=== PATIENT | male | born 1960 | race Caucasian/White ===

== ENCOUNTER 2022-06-23 18:07 | Inpatient (IN) | payer OTHER, SELFPAY ==
[2022-06-23] VITALS (11 sets, daily range): BP systolic 126–175; BP diastolic 60–92; PULSE 70–95; RESP 15–24; TEMP 36.6; O2SAT 93–98; BMI 28.7
--- NOTE | 2022-06-23 18:30 | DI.CT.S_ITS ---
PROCEDURE: CT ANGIO HEAD AND NECK INDICATIONS: stroke symptoms TECHNIQUE: Pre-contrast 4.5 mm thick sections acquired from the foramen magnum to the vertex. After the administration of intravenous contrast, 1 mm thick sections acquired from the aortic arch through the [place] of [place]. Post-contrast 4.5 mm thick sections then re-acquired from the foramen magnum to the vertex. 3-dimensional mbqbgds-zbwhfzrdu-htpeewbjmy (MIP) and/or volume rendering reformats were acquired of the central intracranial vasculature and neck separately. For radiation dose reduction, the following was used: automated exposure control, adjustment of mA and/or kV according to patient size. COMPARISON: None. FINDINGS: Image quality: Excellent. BRAIN: CSF spaces: Ventricles are normal in size and shape. Basal cisterns are patent. No extra-axial fluid collections. Brain: No midline shift. No intracranial bleeds or masses. Ha-white matter interface appears intact. Skull and face: Calvarium and facial bones appear intact, without suspicious lesions. Orbits appear normal. Sinuses: Sinuses and mastoids are clear. HEAD CT ANGIOGRAPHY: Anterior circulation: Left internal carotid artery is occluded. Mild calcific stenosis of the cavernous segment of the right internal carotid artery. The flow within the paired anterior cerebral arteries is normal and symmetric. The flow within the middle cerebral arteries is normal and symmetric. The anterior communicating artery is seen. No aneurysms are seen. Posterior circulation: Visualized portions of the vertebral arteries demonstrate normal caliber, and join to form a normal appearing basilar artery. Flow within the posterior cerebral arteries is normal and symmetric. No aneurysms are seen. NECK CT ANGIOGRAPHY: Carotid system: The great vessels demonstrate a conventional anatomy as they arise from the aortic arch. The origins of the common carotid arteries appear patent. The common carotid arteries demonstrate normal caliber and courses. Left internal carotid artery is occluded at its origin. Right internal carotid artery demonstrates a roughly 30% origin stenosis, and is otherwise patent. Posterior circulation: The origins of the vertebral arteries both appear widely patent. The more superior extracranial portions of both vertebral arteries also demonstrate normal courses and calibers. They join to form a normal appearing basilar artery. Soft tissues: Visualized neck soft tissues demonstrate no suspicious abnormalities. Bones: No suspicious bony lesions. Visualized cervical spine appears normally aligned. IMPRESSION: 1. Occluded left internal carotid artery. 2. Mildly stenotic right internal carotid artery. 3. Patent bilateral vertebral arteries. Any quantitative measurements of stenosis were performed using NASCET criteria. Dictated by: Enrique Gallo M.D. on 06/23/2022 at 19:24 Approved by: Enrique Gallo M.D. on 06/23/2022 at 19:27
[2022-06-23 18:56] LABS: Add Manual Diff / Slide Review NO; Basophils Absolute Auto 100 /uL (0-100); Basophils Percent Auto 1.2 % (0-2); Eosinophils Absolute Auto 0 /uL (0-450); Eosinophils Percent Auto 0.7 % (2-4); Hematocrit 48.4 % (41-53); Hemoglobin 17.4 g/dL (13.5-17.5); Lymphocytes Absolute Auto 1600 /uL (1100-4500); Lymphocytes Percent Auto 21.8 % (25-40); Mean Corpuscular HGB Conc 35.9 % (30-36); Mean Corpuscular Hemoglobin 32.6 PG (26-34); Mean Corpuscular Volume 90.8 fL (80-100); Monocytes Absolute Auto 600 /uL (0-900); Monocytes Percent Auto 8.5 % (3-14); Neutrophils Absolute Auto 4900 /uL (1500-7000); Neutrophils Percent Auto 67.8 % (50-75); Platelet Count 184 X10^3/uL (150-400); Red Blood Cell Count 5.33 X10^6/uL (4.5-5.9); White Blood Cell Count 7.2 X10^3/uL (4.5-11.0)
[2022-06-23 18:58] LABS: Prothrombin Time 11.9 SECONDS (10.1-12.7)
[2022-06-23 19:00] LABS: PTT Partial Thromboplastin Tim 32 SECONDS (26-36)
[2022-06-23 19:03] LABS: Alanine Aminotransferase 63 IU/L (<50); Albumin 4.7 g/dL (3.5-5.0); Albumin Globulin Ratio 1.5 (1.0-2.8); Alkaline Phosphatase 82 U/L (38-126); Aspartate Aminotransferase 45 IU/L (17-59); BUN Creatinine Ratio 11.3 (6-22); Bilirubin Total 1.2 mg/dL (0.2-1.3); Blood Urea Nitrogen 12 mg/dL (9-20); Calcium 9.4 mg/dL (8.4-10.2); Carbon Dioxide 20 mmol/L (22-32); Chloride 104 mmol/L (98-107); Creatine Kinase 88 U/L (55-170); Estimated Glomerular Filt Rate > 60 mL/min (>60); Ethanol (ETOH) < 10 mg/dL; Globulin 3.2 g/dL (1.7-4.1); Glucose 110 mg/dL (70-100); HEMOLYSIS < 15 (0-50); Potassium 4.2 mmol/L (3.4-5.1); Sodium 137 mmol/L (137-145); Total Protein 7.9 g/dL (6.3-8.2)
[2022-06-23 19:14] LABS: Troponin I < 0.012 ng/mL (0.01-0.034)
--- NOTE | 2022-06-23 19:16 | ED_ITS ---
HPI - Neuro Symptoms/Deficit General Chief Complaint: Neuro Symptoms/Deficit Stated Complaint: possible stroke Time Seen by Provider: 06/23/22 19:00 Source: patient, family and other (Primary care notes) Mode of arrival: Family Vehicle Limitations: no limitations History of Present Illness HPI Narrative: Patient here with daughter, drove here from primary care office for primary care reports concern of stroke. Patient states he was in [place] last week but return last Tuesday. This past Tuesday last well known with being well. Tuesday morning he was shaving he is right-handed and had very much difficulty with controlling his right hand to shave his face. Had no facial numbness or weakness. 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 This is not new. But denies any leg weakness. No slurred speech or facial droop. Patient feels his arm is better. But not 100%. No prior history of stroke. No history of heart attack strokes diabetes or high blood pressure. Daughter states he does not live with her and today is the 1st time she knows about these symptoms. No recent illness. No chest pain no headache. No cough cold congestion fever chills. Fast exam is negative History of same: No Severity: moderate Quality: weak Relieving factors: none Exacerbating factors: none On Anticoagulants: No Associated symptoms: denies other symptoms Related Data Allergies Allergy/AdvReac Type Severity Reaction Status Date / Time No Known Drug Allergies Allergy Verified 06/23/22 18:16 Review of Systems Review of Systems Narrative: GENERAL: negative chills, fatigue, malaise, fever, sweats. HEENT: negative sinus pain, ear pain, sore throat RESPIRATORY: negative dyspnea, cough CARDIOVASCULAR: negative chest pain, palpitations GASTROINTESTINAL: negative nausea, vomiting, abdominal pain : negative dysuria, frequency, hematuria MUSCULOSKELETAL: negative muscle or bony pain SKIN: negative rash, skin lesions NEUROLOGIC: Positive weakness, numbness, negative facial droop slurred speech ROS Unobtainable: All systems reviewed & are unremarkable except as noted in HPI and below Hematologic/Lymphatic On Anticoagulants: No Patient History Social History Smoking Status: Current some day smoker Smoking Status: Current some day smoker tobacco type: cigars Substance Use Type: does not use Exam Narrative Exam Narrative: GENERAL: in no distress, not toxic not dyspneic HEAD: Normocephalic. EYES: Pupils equal round No scleral icterus. ENT: Mucous membranes moist. NECK: Trachea midline. CARDIOVASCULAR: Regular rate and rhythm without murmurs RESPIRATORY: Clear to auscultation. Breath sounds equal bilaterally. No wheezes, rales, or rhonchi. GASTROINTESTINAL: Abdomen soft, non-tender EXTREMITIES: No gross deformities. BACK: No flank tenderness. NEURO: AOx4. Clear speech no facial droop. ?Light touch intact to bilateral face hands and legs. ?Strong equal insecticide maker bilaterally and ankle flexion hip flexion and knee flexion. ?Strong bilateral patellar reflexes. ?No pronator drift. ? SKIN: Warm and dry PSYCH: Not anxious, is cooperative Initial Vital Signs Initial Vital Signs: Vital Signs Temperature 97.8 F 06/23/22 18:14 Pulse Rate 95 H 06/23/22 18:14 Respiratory Rate 16 06/23/22 18:14 Blood Pressure 170/92 H 06/23/22 18:14 Pulse Oximetry 98 06/23/22 18:14 Oxygen Delivery Method 06/23/22 18:14 Scores NIH Stroke Scale Level of Conciousness: Alert, keenly responsive Ask month/age: Answers both questions correctly. Open/close eyes, close hand: Performs both tasks correctly Best gaze horizontal: Normal Visual coon: No visual loss Facial palsy: Normal symetrical movement Left arm drift: No drift for full 10 sec Right arm drift: No drift for full 10 sec Left leg drift: No drift for full 5 sec Right leg drift: No drift for full 5 sec Limb ataxia: Absent Sensory on face/arms/legs: Normal, no sensory loss Best language: No aphasia, normal Dysarthria: Normal Extinction or inattention: No abnormality Total NIH Stroke scale score: 0 Course Course Decision to Admit Date: 06/23/22 Decision to Admit time: 19:21 Orders Ordered: ED Orders 06/23/22 18:29 Urine Drug Screen, Rapid Stat EKG-12 Lead Stat 06/23/22 18:30 CT angio head and neck Stat 06/23/22 18:40 Complete Blood Count AUTO DIFF Stat Comprehensive Metabolic Panel Stat Ethanol (ETOH) Stat Partial Thromboplastin Time Stat Prothrombin Time INR Stat Troponin & CK Cardiac Panel Stat 06/23/22 19:17 COVID19 -Nasal RAPID/Pre-Proc Stat Acetaminophen (Acetaminophen 325 Mg Tablet) 650 mg PO Q6H PRN PRN Reason: Fever/Mild Pain (1-3) Aspirin (Aspirin Ec 81 Mg Tablet) 81 mg PO DAILY [facility] Atorvastatin Calcium (Atorvastatin 20 Mg Tablet) 80 mg PO BEDTIME [facility] Clopidogrel Bisulfate (Clopidogrel 75 Mg Tablet) 75 mg PO DAILY [facility] Enoxaparin Sodium (Enoxaparin 40 Mg/0.4 Ml Syringe) 40 mg SUBCUT DAILY [facility] Losartan Potassium (Losartan 25 Mg Tablet) 25 mg PO DAILY [facility] Naloxone HCl (Naloxone 0.4 Mg/Ml Vial) 0.2 mg IV Q2MIN PRN PRN Reason: Opiate Reversal Ondansetron HCl (Ondansetron 4 Mg/2 Ml Inj) 4 mg IV Q8HR PRN PRN Reason: Nausea And Vomiting Discontinued Medications Aspirin (Aspirin 81 Mg Chew Tab) 324 mg PO NOW ONE Stop: 06/23/22 19:58 Last Admin: 06/23/22 20:21 Dose: 324 mg Documented By: WILLIE Sodium Chloride (Normal Saline 0.9%) 1,000 mls @ 1,000 mls/hr IV BOLUS ONE Stop: 06/23/22 21:00 Last Admin: 06/23/22 20:22 Dose: 1,000 mls/hr Documented By: WILLIE Vital Signs Vital signs: Vital Signs - 8 hr 06/23/22 18:14 06/23/22 19:00 06/23/22 19:38 Temperature 97.8 F Pulse Rate 95 H 77 78 Respiratory Rate 16 18 18 Blood Pressure 170/92 H 163/92 H 147/79 H Pulse Oximetry 98 94 95 Oxygen Delivery Method Room Air Room Air Room Air 06/23/22 20:04 Temperature Pulse Rate 76 Respiratory Rate 20 Blood Pressure 156/86 H Pulse Oximetry 97 Oxygen Delivery Method Room Air MDM - Neuro Symptoms/Deficit Differential Diagnosis Differential diagnosis: Likely peripheral neuropathy, cerebrovascular accident, multiple sclerosis and transient cerebral ischemia Lab Data Result diagrams: 06/23/22 18:40 06/23/22 18:40 Labs: Lab Results 06/23/22 06/23/22 06/23/22 Range/Units 18:40 18:40 18:40 WBC 7.2 (4.5-11.0) X10^3/uL RBC 5.33 (4.5-5.9) X10^6/uL Hgb 17.4 (13.5-17.5) g/dL Hct 48.4 (41-53) % MCV 90.8 (80-100) fL MCH 32.6 (26-34) PG MCHC 35.9 (30-36) % RDW 13.0 (11.6-14.8) % Plt Count 184 (150-400) X10^3/uL Neut % (Auto) 67.8 (50-75) % Lymph % (Auto) 21.8 L (25-40) % [place] % (Auto) 8.5 (3-14) % Eos % (Auto) 0.7 L (2-4) % Baso % (Auto) 1.2 (0-2) % Neut # (Auto) 4900 (7783-2680) /uL Lymph # (Auto) 1600 (4998-7692) /uL [place] # (Auto) 600 (0-900) /uL Eos # (Auto) 0 (0-450) /uL Baso # (Auto) 100 (0-100) /uL PT 11.9 (10.1-12.7) SECONDS INR 1.0 (0.9-1.3) APTT 32 (26-36) SECONDS Sodium 137 (137-145) mmol/L Potassium 4.2 (3.4-5.1) mmol/L Chloride 104 (98-107) mmol/L Carbon Dioxide 20 L (22-32) mmol/L BUN 12 (9-20) mg/dL Creatinine 1.06 (0.66-1.25) mg/dL Estimated GFR > 60 (>60) mL/min BUN/Creatinine Ratio 11.3 (6-22) Glucose 110 H (70-100) mg/dL Calcium 9.4 (8.4-10.2) mg/dL Total Bilirubin 1.2 (0.2-1.3) mg/dL AST 45 (17-59) IU/L ALT 63 H (<50) IU/L Alkaline Phosphatase 82 (38-126) U/L Total Creatine Kinase 88 (55-170) U/L CK-MB (CK-2) TNP CK-MB (CK-2) Rel Index TNP Troponin I < 0.012 (0.01-0.034) ng/mL Total Protein 7.9 (6.3-8.2) g/dL Albumin 4.7 (3.5-5.0) g/dL Globulin 3.2 (1.7-4.1) g/dL Albumin/Globulin Ratio 1.5 (1.0-2.8) Ethyl Alcohol < 10 ( - 10) mg/dL SARS-CoV-2 (PCR) (Negative) 06/23/22 Range/Units 19:17 WBC (4.5-11.0) X10^3/uL RBC (4.5-5.9) X10^6/uL Hgb (13.5-17.5) g/dL Hct (41-53) % MCV (80-100) fL MCH (26-34) PG MCHC (30-36) % RDW (11.6-14.8) % Plt Count (150-400) X10^3/uL Neut % (Auto) (50-75) % Lymph % (Auto) (25-40) % [place] % (Auto) (3-14) % Eos % (Auto) (2-4) % Baso % (Auto) (0-2) % Neut # (Auto) (2714-7327) /uL Lymph # (Auto) (4905-2238) /uL [place] # (Auto) (0-900) /uL Eos # (Auto) (0-450) /uL Baso # (Auto) (0-100) /uL PT (10.1-12.7) SECONDS INR (0.9-1.3) APTT (26-36) SECONDS Sodium (137-145) mmol/L Potassium (3.4-5.1) mmol/L Chloride (98-107) mmol/L Carbon Dioxide (22-32) mmol/L BUN (9-20) mg/dL Creatinine (0.66-1.25) mg/dL Estimated GFR (>60) mL/min BUN/Creatinine Ratio (6-22) Glucose (70-100) mg/dL Calcium (8.4-10.2) mg/dL Total Bilirubin (0.2-1.3) mg/dL AST (17-59) IU/L ALT (<50) IU/L Alkaline Phosphatase (38-126) U/L Total Creatine Kinase (55-170) U/L CK-MB (CK-2) CK-MB (CK-2) Rel Index Troponin I (0.01-0.034) ng/mL Total Protein (6.3-8.2) g/dL Albumin (3.5-5.0) g/dL Globulin (1.7-4.1) g/dL Albumin/Globulin Ratio (1.0-2.8) Ethyl Alcohol ( - 10) mg/dL SARS-CoV-2 (PCR) Negative (Negative) Imaging Data CTA - brain/neck: Radiologist's Impression: [address] [address] [address] Scan Report Signed Patient: Mynor Beal MR#: [id number] : 1960 Acct:[id number] Age/Sex: 61 / M Date of Service: 06/23/22 Loc: ED Accession Number: [id number] ?? Procedure: CT angio head and neck Ordering Provider: Kam Cordova MD PROCEDURE:? CT ANGIO HEAD AND NECK ? INDICATIONS:? stroke symptoms ? TECHNIQUE:? Pre-contrast 4.5 mm thick sections acquired from the foramen magnum to the vertex.? After the administration of intravenous contrast, 1 mm thick sections acquired from the aortic arch through the [place] of [place].? Post-contrast 4.5 mm thick sections then re- acquired from the foramen magnum to the vertex.? 3-dimensional zfsbcoh-bufslfdqh-sqyezgpkoj (MIP) and/or volume rendering reformats were acquired of the central intracranial vasculature and neck separately. For radiation dose reduction, the following was used:? automated exposure control, adjustment of mA and/or kV according to patient size.? ? COMPARISON:? None. ? FINDINGS:? Image quality:? Excellent.? ? BRAIN:? CSF spaces:? Ventricles are normal in size and shape.? Basal cisterns are patent.? No extra-axial fluid collections.? ? Brain:? No midline shift.? No intracranial bleeds or masses.? Ha-white matter interface appears intact.? ? Skull and face:? Calvarium and facial bones appear intact, without suspicious lesions.? Orbits appear normal.? ? Sinuses:? Sinuses and mastoids are clear.? ? HEAD CT ANGIOGRAPHY:? Anterior circulation:? Left internal carotid artery is occluded.? Mild calcific stenosis of the cavernous segment of the right internal carotid artery.? The flow within the paired anterior cerebral arteries is normal and symmetric.? The flow within the middle cerebral arteries is normal and symmetric.? The anterior communicating artery is seen.? No aneurysms are seen.? ? Posterior circulation:? Visualized portions of the vertebral arteries demonstrate normal caliber, and join to form a normal appearing basilar artery.? Flow within the posterior cerebral arteries is normal and symmetric.? No aneurysms are seen.? ? NECK CT ANGIOGRAPHY:? Carotid system:? The great vessels demonstrate a conventional anatomy as they arise from the aortic arch.? The origins of the common carotid arteries appear patent.? The common carotid arteries demonstrate normal caliber and courses.? Left internal carotid artery is occluded at its origin.? Right internal carotid artery demonstrates a roughly 30% origin stenosis, and is otherwise patent. ? Posterior circulation:? The origins of the vertebral arteries both appear widely patent.? The more superior extracranial portions of both vertebral arteries also demonstrate normal courses and calibers.? They join to form a normal appearing basilar artery.? ? Soft tissues:? Visualized neck soft tissues demonstrate no suspicious abnormalities.? ? Bones:? No suspicious bony lesions.? Visualized cervical spine appears normally aligned.? IMPRESSION:? 1. Occluded left internal carotid artery. 2. Mildly stenotic right internal carotid artery. 3. Patent bilateral vertebral arteries. ? Any quantitative measurements of stenosis were performed using NASCET criteria.? ? ? Dictated by: Enrique Gallo M.D. on 06/23/2022 at 19:24 ? ? Approved by: Enrique Gallo M.D. on 06/23/2022 at 19:27 ? ECG Data Interpretation: Normal sinus rhythm rate [address] elevation or depression Treatment and disposition Social Determinants of Health that impact treatment or disposition: None Code Status and discussions:: Full code Shared decision making:: Reviewed with daughter and patient MDM Narrative Medical decision making narrative: Patient here with daughter, drove here from primary care office for primary care reports concern of stroke. Patient states he was in [place] last week but return last Tuesday. This past Tuesday last well known with being well. Tuesday morning he was shaving he is right-handed and had very much difficulty with controlling his right hand to shave his face. Had no facial numbness or weakness. 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 This is not new. But denies any leg weakness. No slurred speech or facial droop. Patient feels his arm is better. But not 100%. No prior history of stroke. No history of heart attack strokes diabetes or high blood pressure. Daughter states he does not live with her and today is the 1st time she knows about these symptoms. No recent illness. No chest pain no headache. No cough cold congestion fever chills. Fast exam is negative After history, CBC CMP troponin EKG CT angiogram head and neck were ordered. D ifferential diagnosis includes cervical radiculopathy/TIA/stroke but not limited to these differentials. 7:22 p.m.. Did review with patient based on exam and history it would be prudent for admission for balance workup for possible TIA/stroke. 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 He needs echocardiogram and MRI in the morning. Blood pressure is noted. This could be due to anxiety versus cerebral perfusion demand. 7:46 p.m.. I did review results of CT angiogram and concerning for occluded left internal carotid artery. I have paged tele stroke for review. 7:56 p.m.. s/w dr mckeon, telestroke, recommends patient be admitted here, not transfer. I did review angiogram with her with left internal carotid artery occlusion. At this time, no intervention as onset 2 days ago. Recommends full aspirin and get carotid Dopplers while course of admission here. allow permissive htn 8:[address] Pandya, hospitalist, will admit patient. Appropriate for admission, patient will need balance a workup for stroke. Including carotid Dopplers as well as echocardiogram as well as MRI. Patient has been started aspirin here. Patient would have high risk of decompensation /deconditioning if discharged home. Would benefit for stroke treatment here. Stroke Core Measures Exclusion Criteria TPA in CVA: Symptom Onset >3 or 4.5 Hours Discharge Plan Departure Patient Disposition: Admitted as Observation Clinical Impression: Cerebrovascular accident Admit Date/Time: 06/23/22 20:19 Admit Provider: Fito Pandya
[2022-06-23 19:46] LABS: COVID19 -Nasal RAPID Negative (Negative)
[2022-06-23] MEDS: ASPIRIN 81 MG CHEW TAB 324 MG PO (20:21)
[2022-06-23] MEDS: SODIUM CHLORIDE 0.9% 1,000 ML 1000 ML IV (20:22)
--- NOTE | 2022-06-23 21:04 | DI.MRI.S_ITS ---
PROCEDURE: MR HEAD/BRAIN WO CON INDICATIONS: cva? TECHNIQUE: Noncontrast axial T1 spin echo, axial T2 fast spin echo, sagittal and axial FLAIR, coronal T2 fast spin echo, axial gradient echo, axial diffusion and ADC through the brain. COMPARISON: None. FINDINGS: Image quality: Degraded by patient cooperation factors and motion artifact. CSF Spaces: Basal cisterns are patent. No extra-axial fluid collections. Ventricles are normal in size and shape. Brain: No intracranial masses or hemorrhage. Ha/white matter interface is normal. Brainstem appears normal. Diffusion-weighted images demonstrate multiple regions of elevated signal intensity within the left centrum semiovale, largest of which measures roughly 11 mm. Small focus of elevated diffusion signal within the left occipital subcortical white matter. These lesions demonstrate moderate FLAIR signal elevation.. No chronic ischemic insults. Normal intravascular flow voids are present. Skull and face: Calvarium has normal marrow signal. Orbits appear normal. Sinuses: Retention cysts within the bilateral sphenoid sinuses. Retention cyst within the right maxillary sinus. Mastoids clear. IMPRESSION: 1. Limited examination. 2. Multifocal subacute infarcts within the left centrum semiovale and left occipital subcortical white matter. 3. Sinus disease. Dictated by: Enrique Gallo M.D. on 06/24/2022 at 8:24 Approved by: Enrique Gallo M.D. on 06/24/2022 at 8:26
--- NOTE | 2022-06-23 21:07 | DI.ECHO.S_ITS ---
[facility]---------+ [facility] +---------+ : : [address] [place] : : : : [id number] : : : : Phone: [phone]+ Echocardiogram Report + + :Name: ODELL BERMAN Study Date: 06/24/2022 Height: 75 in : :[facility] ReadingLocation: Weight: 230 lb: : Gender: Male BSA: 2.3 m2 : :: 1960 Age: 61 yrs : :Reason For Study: CVA : :Ordering Physician: EDGARD, : :DIOGENES Performed By: Malia Mackey : :Referring: DIOGENES RENE : + + Interpretation Summary The left ventricle is normal in size. There is no LV thrombus. The ejection fraction is estimated to be 60-65%. The right ventricle is normal in size and function. No significant valvular pathology seen. Mild atherosclerotic plaque(s) in the aortic arch. The patient was in sinus rhythm with heart rates between 65-73 bpm during the exam. Procedure: A two-dimensional transthoracic echocardiogram with color flow and Doppler was performed. The study quality was technically adequate. There is no prior echocardiogram noted for this patient. A saline contrast injection was performed to assess for cardiac shunting. The patient was in sinus rhythm with heart rates between 65-73 bpm during the exam. Left Ventricle: The left ventricle is normal in size. Left ventricular wall thickness is mildly increased. There is no thrombus. The ejection fraction is estimated to be 60-65%. There are no focal wall motion abnormalities. MV E/A: 1.0 Med Peak E' Jarrod: 8.1 cm/sec E/E' med: 10.3. Right Ventricle: The right ventricle is normal in size and function. Atria: The left atrial size is normal. Right atrial size is normal. There is no Doppler evidence for an interatrial shunt. Injection of contrast documented no interatrial shunt. The thickening of interatrial septum suggests lipomatous hypertrophy. Mitral Valve: There is mild mitral annular calcification. There is trace mitral regurgitation. Aortic Valve: The aortic valve is trileaflet. The aortic valve opens well. The aortic valve is slightly calcified. There is discrete nodular thickening of the right coronary cusp. There is no aortic valve stenosis. No aortic regurgitation is present. Tricuspid Valve: The tricuspid valve is normal in structure and function. No tricuspid regurgitation. Pulmonary artery pressures cannot be estimated because of the lack of a measurable TR jet velocity. Pulmonic Valve: The pulmonic valve is not well visualized. There is no pulmonic valvular regurgitation. Great Vessels: The aortic root is normal size. The dimensions of the ascending aorta are normal. Mild atherosclerotic plaque(s) in the aortic arch. The IVC is of normal diameter and collapses greater than 50% with a sniff. This suggests a low right atrial pressure of 3 mm Hg. Pericardium/ Pleura There is no pericardial effusion. There is an anterior echo-free space consistent with a fat pad. There is no pleural effusion. MMode/2D Measurements & Calculations LVIDd: 4.6 cm LVOT diam: 2.2 cm LVIDs: 3.4 cm Ao root diam: 3.8 cm FS: 27.2 % asc Aorta Diam: 3.1 cm IVSd: 1.1 cm Ao Arch Diam (Prox Trans): 3.1 cm LVPWd: 1.0 cm LV mercedes. diameter/BSA (cm/m^2): 2.0 LV sys. diameter/BSA (cm/m^2): 1.4 LA A2 area: 17.1 cm2 RA long axis: 4.7 cm LA A4 area: 14.4 cm2 RA area: 12.8 cm2 LA length (vol): 4.7 cm RA vol: 29.6 ml LA vol: 44.5 ml RA : 12.7 ml/m2 LA vol index: 19.1 ml/m2 IVC diam: 1.9 cm RVD1 (basal): 3.0 cm TAPSE: 1.7 cm Doppler Measurements & Calculations Ao V2 max: 117.6 cm/sec LVOT Max Jarrod: 82.5 cm/sec Ao V2 mean: 78.1 cm/sec LV V1 max P.7 mmHg Ao max P.5 mmHg LV V1 VTI: 16.2 cm Ao mean P.8 mmHg NARCISO(I,D): 2.9 cm2 Ao V2 VTI: 21.4 cm NARCISO(V,D): 2.7 cm2 sev ratio: 0.76 NARCISO indexed to BSA (cm^2/m^2): 1.3 MV E max jarrod: 83.4 cm/sec PA V2 max: 111.2 cm/sec MV A max jarrod: 81.5 cm/sec PA V2 mean: 80.9 cm/sec MV E/A: 1.0 PA mean P.9 mmHg Med Peak E' Jarrod: 8.1 cm/sec E/E' med: 10.3 Lat Peak E' Jarrod: 8.6 cm/sec E/E' lat: 9.7 E/e' average: 10.0 MV dec time: 0.20 sec SV(OT): 62.5 ml Reading Physician:10:04 AM
--- NOTE | 2022-06-23 22:52 | PM.HP.1 ---
History of Present Illness History of Present Illness Date Patient Seen: 06/23/22 Time Patient Seen: 21:00 Chief complaint: possible stroke Narrative: Mr. Beal is a 61M with PMH of lymphoma in remission who presents to the hospital with right extremity numbness and clumsiness. He was in his normal state of health and Tuesday morning he noted that he had odd sensation on the right side of his body. He had numbness and altered sensation in his right upper extremity. He noticed this in his right leg and possibly also his right face. He noticed that he had some slight weakness, and clumsiness in his right hand, he had difficulty shaving with his right hand. He thinks he possibly had mild vision change and speech change. He has family at bedside who have not noted speech changes. He initially presented to an outpatient clinic who recommended evaluation here. In the ED workup was done, vitals notable for afebrile, heart rate in the 90s, blood pressure 170/92. Labs notable for WBC 7.2, hgb 17.4, creatinine 1.06. Trop negative. CTA head/neck showed no abnormality in cerebrum, with angiography noting an occluded left internal carotid and mildly stenotic right internal carotid. EKG showed normal sinus rhythm. He was given aspirin and admitted for further treatment. Family history: no history of strokes Social history: no smoking, no significant alcohol use Patient History Family & Social History Safety & Behavioral: Feels Safe in Current Yes Environment Been Physically Hurt or No Threatened By a Person Tobacco & Substance use: Smoking Status Current some day smoker Substance Use Type does not use Meds Home Medications and Allergies Allergies Allergy/AdvReac Type Severity Reaction Status Date / Time No Known Drug Allergies Allergy Verified 06/23/22 18:16 Review of Systems Review of Systems Narrative: 14 systems reviewed and negative aside from what is noted in HPI Exam Vital Signs (past 8 hours): - 06/23/22 18:14 06/23/22 19:00 06/23/22 19:38 Temperature 97.8 F Pulse Rate 95 H 77 78 Respiratory Rate 16 18 18 Blood Pressure 170/92 H 163/92 H 147/79 H Pulse Oximetry 98 94 95 Oxygen Delivery Method Room Air Room Air Room Air 06/23/22 20:04 06/23/22 20:30 06/23/22 21:00 Temperature Pulse Rate 76 74 71 Respiratory Rate 20 16 21 Blood Pressure 156/86 H 164/87 H 151/88 H Pulse Oximetry 97 96 95 Oxygen Delivery Method Room Air Room Air Room Air Oxygen Delivery Method Room Air Narrative Exam Narrative: GEN: no acute distress HEENT: moist mucous membranes, PERRL NECK: trachea midline, no JVD PULM: clear bilaterally, no wheezes/rhonchi/rales CV: regular rate and rhythm, no murmurs ABD: soft, nontender, nondistended, normal bowel sounds EXT: warm and well perfused with no edema NEURO: awake, alert, oriented, no focal deficits noted, CN 2-12 intact, upper and lower extremities 5/5 strength, sensation intact in face and upper and lower extremities, rapid alternating movements without abnormality Objective Labs Result Diagrams: 06/23/22 18:40 06/23/22 18:40 Labs: Laboratory Results - last 24 hr 06/23/22 06/23/22 06/23/22 18:40 18:40 18:40 WBC 7.2 RBC 5.33 Hgb 17.4 Hct 48.4 MCV 90.8 MCH 32.6 MCHC 35.9 RDW 13.0 Plt Count 184 Neut % (Auto) 67.8 Lymph % (Auto) 21.8 L [place] % (Auto) 8.5 Eos % (Auto) 0.7 L Baso % (Auto) 1.2 Neut # (Auto) 4900 Lymph # (Auto) 1600 [place] # (Auto) 600 Eos # (Auto) 0 Baso # (Auto) 100 PT 11.9 INR 1.0 APTT 32 Sodium 137 Potassium 4.2 Chloride 104 Carbon Dioxide 20 L BUN 12 Creatinine 1.06 Estimated GFR > 60 BUN/Creatinine Ratio 11.3 Glucose 110 H Calcium 9.4 Total Bilirubin 1.2 AST 45 ALT 63 H Alkaline Phosphatase 82 Total Creatine Kinase 88 CK-MB (CK-2) TNP CK-MB (CK-2) Rel Index TNP Troponin I < 0.012 Total Protein 7.9 Albumin 4.7 Globulin 3.2 Albumin/Globulin Ratio 1.5 Ethyl Alcohol < 10 SARS-CoV-2 (PCR) 06/23/22 19:17 WBC RBC Hgb Hct MCV MCH MCHC RDW Plt Count Neut % (Auto) Lymph % (Auto) [place] % (Auto) Eos % (Auto) Baso % (Auto) Neut # (Auto) Lymph # (Auto) [place] # (Auto) Eos # (Auto) Baso # (Auto) PT INR APTT Sodium Potassium Chloride Carbon Dioxide BUN Creatinine Estimated GFR BUN/Creatinine Ratio Glucose Calcium Total Bilirubin AST ALT Alkaline Phosphatase Total Creatine Kinase CK-MB (CK-2) CK-MB (CK-2) Rel Index Troponin I Total Protein Albumin Globulin Albumin/Globulin Ratio Ethyl Alcohol SARS-CoV-2 (PCR) Negative Assessment & Plan Assessment & Plan narrative: 1. Probable CVA vs TIA -presented with symptoms concerning for possible CVA -NIH initially 2, then rechecked and 1 -CT head with no acute process, CTA head/neck noted to have occluded left ICA, and reviewed by me -ordered for NIH q6 -ordered aspirin, plavix, statin -check a1c, and lipids -ordered MRI and ECHO -keep on telemetry -ordered PT, OT, speech evaluation -will need referral to PCP on discharge 2. Occluded left ICA -presumed to be source of neurologic symptoms -for now dual antiplatelet therapy -refer on discharge to vascular surgeon 3. Elevated blood pressure -probable that patient has hypertension -plan to start anti-hypertensives tomorrow if blood pressure still elevated I have reviewed and discussed the patient's plan of care with the ED physician, and I have confirmed information provided to me with patient's daughter who is at bedside. CODE: Full Proxy: Laurel Beal, daughter I have utilized all available resources to reconcile the patient's home medications Time Spent With Patient Critical Care time: I spent a total of [] minutes of critical care time on this patient's care today; this time is exclusive of procedural time. Quality [facility] - Meds 'Current medications' to include all prescriptions, [id number] products, herbals, cannabis/cannabidiol products, and vitamin/mineral/dietary (nutritional) supplements. I have utilized all available resources to obtain, update, or review the patient?s current medications. [If Yes, STOP here]: Yes
[2022-06-24] VITALS (28 sets, daily range): BP systolic 136–147; BP diastolic 63–87; PULSE 60–97; RESP 18–24; O2SAT 92–98
[2022-06-24 00:53] LABS: UR Morphine/Opiate cutoff 300 Negative (Negative); Ur Creatinine Normal (Normal); Ur Specific Gravity Normal (Normal); Urine Amphetamines Negative (Negative); Urine Barbiturates Negative (Negative); Urine Benzodiazepines Negative (Negative); Urine Cocaine Negative (Negative); Urine MDMA Negative (Negative); Urine Methadone Negative (Negative); Urine Methamphetamines Negative (Negative); Urine Oxycodone Negative (Negative); Urine Phencyclidine Negative (Negative); Urine Tetrahydrocannabinol Negative (Negative); Urine Tricyclic Antidepressant Negative (Negative); Urine pH Normal (Normal)
--- NOTE | 2022-06-24 06:51 | PC.NURSE ---
1930: Pt is resting calmly in bed with daughter at the bedside. This Rn conducted an NIH scale with a score of 1 in relation to his ability to speak. He incorrectly said tip-top and appears to be slightly delayed in his responses to this RN. When this Rn asked the daughter if she thought her father sounded or acted differently, she said no and that this behavior was his baseline. 2199: Pt daughter brought in take out for pt to eat. Pt tolerated meal well. Throughout the night pt would get up to use the restroom and has interacted appropriately with staff. pt slept most of the night and denied any needs other than wanting his mouth guard that helped with his MELISSA. As a result he reported a poor night's rest. Pt was offered a hospital bed and he declined. NIH was unchanged during his 0000 and 0400 assessment. Pt continues to reports the R arm weakness but denies any new symptoms.
[2022-06-24 08:23] LABS: Add Manual Diff / Slide Review NO; Basophils Absolute Auto 0 /uL (0-100); Basophils Percent Auto 0.6 % (0-2); Eosinophils Absolute Auto 100 /uL (0-450); Eosinophils Percent Auto 0.9 % (2-4); Hemoglobin 16.3 g/dL (13.5-17.5); Lymphocytes Absolute Auto 1300 /uL (1100-4500); Lymphocytes Percent Auto 16.9 % (25-40); Mean Corpuscular HGB Conc 35.4 % (30-36); Mean Corpuscular Hemoglobin 32.2 PG (26-34); Mean Corpuscular Volume 90.9 fL (80-100); Monocytes Absolute Auto 800 /uL (0-900); Neutrophils Absolute Auto 5500 /uL (1500-7000); Neutrophils Percent Auto 71.6 % (50-75); Platelet Count 170 X10^3/uL (150-400); Red Blood Cell Count 5.06 X10^6/uL (4.5-5.9); Red Cell Distribution Width 13.2 % (11.6-14.8); White Blood Cell Count 7.7 X10^3/uL (4.5-11.0)
[2022-06-24 08:52] LABS: BUN Creatinine Ratio 11.4 (6-22); Blood Urea Nitrogen 12 mg/dL (9-20); Carbon Dioxide 23 mmol/L (22-32); Chloride 107 mmol/L (98-107); Cholesterol 288 mg/dL (140-199); Estimated Glomerular Filt Rate > 60 mL/min (>60); Glucose 113 mg/dL (70-100); HDL Cholesterol 42 mg/dL (40-60); HEMOLYSIS < 15 (0-50); LDL Cholesterol Calculated 212 mg/dL (<100); Potassium 4.1 mmol/L (3.4-5.1); Sodium 139 mmol/L (137-145); Triglycerides 169 mg/dL (35-150)
[2022-06-24 09:18] LABS: Hemoglobin A1C% w Est Avg Glu 4.9 % (4.0-6.0)
[2022-06-24] MEDS: ASPIRIN EC 81 MG TABLET PO (09:34)
[2022-06-24] MEDS: LOSARTAN 25 MG TABLET PO (09:35)
[2022-06-24] MEDS: ENOXAPARIN 40 MG/0.4 ML SYRINGE SUBCUT (09:35)
[2022-06-24] MEDS: CLOPIDOGREL 75 MG TABLET PO (09:35)
--- NOTE | 2022-06-24 10:53 | PT.IIE ---
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 M2 PT-IP Current Condition Start: 06/24/22 10:39 Freq: Status: Active Protocol: Document 06/24/22 10:39 BC (Rec: 06/24/22 10:53 [id number]) Physical Therapy Current Condition Current Condition Evaluation Date 06/24/22 Treatment Diagnosis CVA, impaired R sided strength /coordination Onset Date 06/23/22 M3 PT-IP Subjective Start: 06/24/22 10:39 Freq: Status: Active Protocol: Document 06/24/22 10:39 BC (Rec: 06/24/22 10:53 [id number]) Subjective Physical Therapy Visit Type Type Initial Evaluation Visit Start Time 10:05 Visit Stop Time 10:35 Total Visit Minutes 30 Physical Therapy Visit Comments Patient Comments I've never had to be on medicine other than when I went through chemo tx. Patient Goals To go home today Therapy Pain Assessment Pain When Pain Assessed At Rest Pain Present Pain Present Denied Pain M4 PT-IP Mobility and Gait Start: 06/24/22 10:39 Freq: Status: Active Protocol: Document 06/24/22 10:39 BC (Rec: 06/24/22 10:53 [id number]) PT-Bed Mobility Assessment Rolling Level of Assist Independent Supine to Sit Supine to Sit Independent Sit to Supine Sit to Supine Independent Scooting Scooting to Edge of Bed Independent PT-Transfer Assessment Sit to and From Stand Sit to and from Stand Independent Equipment Transfer Assistive Device None Transfers Transfer Destination Bed Transfer Technique Stand Step Pivot Transfer Ability Level of Assist Independent Comments Mobility Comments No a.d., no physical support needed. Gait Assessment Gait Gait Assistance Required: Independent Distance (Feet) 150 Assistive Devices Assistive Device None Gait Deviations General Gait Pattern Within Normal Limits Comments Gait Comments Pt ambulated ~150' without difficulty. He was able to heel and toe walk with good RLE control and balance. He does stop ambulating several times while trying to have conversation with PT. No loss of balance. Denies vertigo/ dizziness. Stair Climbing Assessment Comments Stair Climbing Comments not assessed in ED PT-Balance Assessment Sitting Balance and Reactions Static Sitting Balance Ability Normal Dynamic Sitting Balance Ability Normal Standing Balance and Reactions Static Standing Balance Ability Normal Dynamic Standing Balance Ability Normal Functional Assessments Functional Tests Tinetti Balance and Gait Assessment M5 PT-IP Objective Assessments Start: 06/24/22 10:39 Freq: Status: Active Protocol: Document 06/24/22 10:39 BC (Rec: 06/24/22 10:53 [id number]) Orientation Orientation/Cognition Level of Alertness Alert Orientation Name,Date,Place,Situation Comments Refer to COMPENSATION COORDINATOR regarding language. He did have some longer pauses between conversations but he states he notices no changes to his speech, word finding. Gross Range of Motion Upper Extremity ROM Assessment Within Functional Limits Lower Extremity ROM Assessment Within Functional Limits Strength Upper Extremity Strength Assessment Within Functional Limits Lower Extremity Strength Assessment Within Functional Limits Comments Strength Comments MMT WFL bilaterally in UE and LE. No apparent hemiparesis R vs L. Able to heel and toe walk. Slight R pronator drift with Pt self correcting during eyes closed. Coordination Assessment Assessment Finger to Nose Test Minimal Impairment Foot Tapping Test Normal Performance Coordination Comments Slight over shoot on first rep of finger to nose with RUE but improves. Pt is R hand dominant. 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 Pt stayed at home with stroke like symptoms for several days prior to coming to the emergency room. We discussed the importance of time in stroke treatment. Educated that strokes can vary in severity of residual deficits. He should not assume that because this stroke had minimal effects that the next one will too. He reports feeling overwhelmed at having to now take medications. Encouraged him to pursue medical assessments recommended by hospital physicians including vascular surgeon. M7 PT-IP Assessment and Plan Start: 06/24/22 10:39 Freq: Status: Active Protocol: Document 06/24/22 10:39 BC (Rec: 06/24/22 10:53 BC [id number]) PT Summary Assessment and Plan Potential Rehabilitation Potential Excellent Status of Condition at Evaluation Stable Summary Progress Towards Goals Goals Met Assessment Summary Pt admitted due to acute CVA. MRI showing L subacute infarcts centrum semiovale and L occipital lobe. He reports his symptoms initially being R arm/leg weakness and numbness . He denies vision changes, vertigo, facial droop or speech deficits. He reports feeling like most of his symptoms have improved. He is R hand dominant. He lives alone with family near by (dtr /mother). 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 Pt demonstrates completely independent mobility. He is a low fall risk on Tinetti testing. He has intact motor coordination and strength of BLEs. Slight coordination difficulty noted in RUE ( dominant) arm. Gait is within normal limits. At this time recommend discharge home. He could benefit from OPPT evaluation but suspect OPOT will be more beneficial. Frequency of Treatment Frequency Of Treatment Discharge Recommendations To Nursing Amount of Assist Needed Independent Discharge Recommendations PT Discharge Recommendations Home Transportation Needs at Discharge Private Vehicle
--- NOTE | 2022-06-24 11:05 | ST.IPSCREEN ---
Pt was reclined in bed when TEASEL SETTER arrived. He positioned himself into upright position to participate in speech screen. Pt stated he did not notice any changes in his speech since Tuesday and reported minimal weakness in right side of mouth. Most of his symptoms were in his right extremities. Difficulty noted with naming uncommon objects (e.g., hammock), though pt named common objects with 100% accuracy. Pt stated he sometimes has difficulty putting words together, but this happens infrequently. Completed oral motor assessment with pt. Structures were symmetrical at rest and in motion, with the exception of uvula, which deviated mildly to the left. Tongue, lip, and jaw strength and ROM were WNL. Structure and function of oral mechanism appears WNL for the purposes of speech and swallowing. Pt reported no difficulty chewing or swallowing. Patient may benefit from outpatient speech therapy if sequencing sounds persist following discharge.
--- NOTE | 2022-06-24 11:15 | OT.IP.EVAL ---
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 M2 OT-IP Current Condition Start: 06/24/22 13:32 Freq: Status: Active Protocol: Document 06/24/22 11:15 [facility] (Rec: 06/24/22 14:04 [facility] [id number]) Occupational Therapy Current Condition Current Condition Evaluation Date 06/24/22 Treatment Diagnosis Multiple subacute infarcts with L centrum semivale & L occipital subcortical Diagnosis Onset Date 06/23/22 M3 OT- IP Subjective and Pain Start: 06/24/22 13:32 Freq: Status: Active Protocol: Document 06/24/22 11:15 [facility] (Rec: 06/24/22 14:04 [facility] [id number]) OT- Subjective Occupational Therapy Visit Type Type Initial Evaluation Visit Start Time 11:15 Visit Stop Time 12:00 Total Visit Minutes 45 Occupational Therapy Visit Comments Patient Comments Pt agreed to work with OT, pt' s daughter came in at the end of the session. Patient/Caregiver Goals To go home. OT Pain Assessment Pain When Pain Assessed At Rest Pain Present Pain Present Denied Pain M4 OT- IP ADL's Start: 06/24/22 13:32 Freq: Status: Active Protocol: Document 06/24/22 11:15 [facility] (Rec: 06/24/22 14:04 [facility] [id number]) OT [id number] Comments OT Self-Feeding Comments Not at meal time. OT ADL-Grooming Comments OT Grooming Comments NOt performed OT ADL-Oral Care Comments Oral Care Comments Not performed OT ADL-Dressing General Eval Lower Body Dressing Ability Standby Assistance Comments OT Dressing Comments Pt able to roldan/doff his socks but pausing in between and needing cues to continue. OT ADL-Toileting Comments OT Toileting Comments Not performed. OT ADL-Bathing Comments OT Bathing Comments NOt performed. M5 OT- IP IADL's Start: 06/24/22 13:32 Freq: Status: Active Protocol: Document 06/24/22 11:15 [facility] (Rec: 06/24/22 14:04 [facility] [id number]) OT-Instrumental Activities of Daily Living Home Safety Awareness Awareness of Need for Assistance at Home Decreased Awareness Home Safety Comments Pt will require supervision for safety and completeness due to cognitive deficits. Medication Management Medication Management Comments Pt will require supervision for safety and completeness due to cognitive deficits. Money Management Money Management Comments Pt will require supervision for safety and completeness due to cognitive deficits. Meal Preparation Meal Preparation Comments Pt will require supervision for safety and completeness due to cognitive deficits. Leather Goods Sales Representative Leather Goods Sales Representative Comments Pt will require supervision for safety and completeness due to cognitive deficits. Driving Driving Concerns Identified Regarding Safety M6 OT- IP Functional Cognition Start: 06/24/22 13:32 Freq: Status: Active Protocol: Document 06/24/22 11:15 [facility] (Rec: 06/24/22 14:04 [facility] [id number]) Cognitive Factors Limiting Selfcare Function Cognitive Ability Level of Alertness Alert Patient Orientation Name,Place,Situation Attention Span Ability Capable of Focused Attention, Capable of Sustained Attention Ability to Follow Commands Able to Follow One Step Commands with Increased Time, Able to Follow One Step Commands with Repetition Memory Description Short Term Impaired,Working Impaired Problem Solving Ability Needs Assist to Identify Solutions Executive Function Ability Unable to Filter Distractions, Unable to Organize Plans, Unable to Remember Details Cognitive Comments Cognitive Assessment Comments Pt having trouble to multi- task and having difficulty to switch from numbers to letters on [place] Making Part B 282 seconds with MAX vc which implies severe impairments for task switching, speed of processing, executive functioning, mental flexibility, and visual attention. Strongly suggested that pt not drive at this time . Pt's daughter realizes that her dad is not doing well and plans to drop him of to his parent's house. OT- Vision and Hearing OT- Hearing Assessment OT- Hearing Assessment WFL OT- Vision Assessment Visual Acuity WFL M7 OT- IP Mobility and Balance Start: 06/24/22 13:32 Freq: Status: Active Protocol: Document 06/24/22 11:15 [facility] (Rec: 06/24/22 14:04 [facility] [id number]) OT- Bed Mobility Assessment Supine to Sit Supine to Sit Assist Independent Sit to Supine Sit to Supine Assist Independent OT-Transfer Assessment Sit to and From Stand Sit to and from Stand Independent Transfers Transfer Ability Independent Technique Transfer Destination Bed Devices Transfer Assistive Devices None Comments Mobility Comments Pt is independent in the room to move. OT- Balance Assessment Sitting Balance and Reactions Static Sitting Balance Ability Normal Dynamic Sitting Balance Ability Good Standing Balance and Reactions Static Standing Balance Ability Good Dynamic Standing Balance Ability Good M8 OT- IP Objective Assessments Start: 06/24/22 13:32 Freq: Status: Active Protocol: Document 06/24/22 11:15 [facility] (Rec: 06/24/22 14:04 [facility] [id number]) OT Gross Range of Motion Upper Extremity Range of Motion Assessment Within Functional Limits OT Strength Upper Extremity Strength Assessment Right Impaired Comments Strength Comments RUE 4/5 throughout OT- Coordination Assessment Upper Extremity Finger to Nose Test Within Functional Limits Finger Tapping Test Bilateral UE Impaired Comments Coordination Comments Pt not able to follow commands to switch from nose to finger and getting confused.Pt scored 30 seconds with 9 hole peg test for right hand which in under 10% for his age group and his left hand was 18.5 seconds which is above 90% for his age group. OT Sensation Assessment Comments Summary Comments Intact for sensation but having difficulty for word finding. Pt then admits that the right forearm feel off. Edema Edema Absent M9 OT- IP Assessment and Plan Start: 06/24/22 13:32 Freq: Status: Active Protocol: Document 06/24/22 11:15 [facility] (Rec: 06/24/22 14:04 [facility] [id number]) OT Summary Assessment and Plan Potential Rehabilitation Potential Good Analytic Complexity at Evaluation Moderate Summary OT Impairments Strength,Coordination, Functional Cognition Progress Towards Goals Slow Progress due to Medical Issues,Slow Progress due to Cognition Assessment Summary Pt MOD complexity and main barriers are decreased executive thinking, slow to process , decreased coordination and strength with RUE. Pt's daughter feels that he is definitely off and handwriting is not the same as well. Pt initially wanting to be dropped off at home as feels that he is fine, however pt's daughter states to drop him off to his parent's house. In addition pt will benefit from outpT to work on coordination,executive thinking and problem solving needs. Goals Dressing Goal Independent Toileting Goal Independent Bathing Goal Independent Toilet Transfer Goal Independent Shower Transfer Goal Independent Days to Meet Goals 45 Frequency of Treatment Frequency Of Treatment Once a Day Treatment Plan OT Treatment Plan ADL Training,Functional Cognition Training,Functional Mobility,Patient/Family Education,Discharge Planning Discharge Recommendations OT Discharge Recommendations Home with 24/ Assist Available,Outpatient PT Transportation Needs at Discharge Private Vehicle
--- NOTE | 2022-06-24 14:31 | P.DS_ITS ---
History of Present Illness History of Present Illness Chief complaint: possible stroke Narrative: Mr. Beal is a 61M with PMH of lymphoma in remission who presents to the hospital with right extremity numbness and clumsiness. He was in his normal state of health and Tuesday morning he noted that he had odd sensation on the right side of his body. He had numbness and altered sensation in his right upper extremity. He noticed this in his right leg and possibly also his right face. He noticed that he had some slight weakness, and clumsiness in his right hand, he had difficulty shaving with his right hand. He thinks he possibly had mild vision change and speech change. He has family at bedside who have not noted speech changes. He initially presented to an outpatient clinic who recommended evaluation here. In the ED workup was done, vitals notable for afebrile, heart rate in the 90s, blood pressure 170/92. Labs notable for WBC 7.2, hgb 17.4, creatinine 1.06. Trop negative. CTA head/neck showed no abnormality in cerebrum, with angiography noting an occluded left internal carotid and mildly stenotic right internal carotid. EKG showed normal sinus rhythm. He was given aspirin and admitted for further treatment. Family history: no history of strokes Social history: no smoking, no significant alcohol use Discharge Providers Provider Date of admission: 06/23/22 20:19 Discharge Date: 06/24/22 Consults: 06/23/22 21:07 Consult to Occupational Therapy Evaluate & Treat Comment: Physician Instructions: Evaluate and treat Consult to Physical Therapy Evaluate & Treat Comment: Physician Instructions: Evaluate and Treat Consult to Speech Therapy Evaluate & Treat Comment: Physician Instructions: Evaluate and treat Discharge provider: Fito Pandya MD Summary Hospital Course Discharge Diagnosis: 1. Acute CVA 2. Left ICA stenosis with complete occlusion 3. Hypertension 4. Hyperlipidemia Hospital Course: Mr. Beal was admitted to the hospital with right sided extremity clumsiness and weakness. He was found to have a stroke on MRI with multifocal subacute infarcts in the left centrum semiovale and left occipital subcortical white matter. He had no evidence of atrial fibrillation and remained in sinus rhythm on tele. He was found to have an occluded left ICA which is thought as the poss ible source of stroke. He was started on dual antiplatelet therapy with aspirin, plavix and a statin. He had elevated cholesterol, no diabetes, and hypertension. He was started on losartan for hypertension. He was encouraged to follow up with a PCP to help manage these stroke risk factors going forward. Additionally, he was referred to cardiology to evaluate his carotid disease to determin if he n eeded intervention, as it is the most likely source of his CVA. He is recommended to have a holter monitor as an outpatient to evaluate for arrhythmia. Finally, he was noted to have some cognitive effects after the stroke and is referred to outpatient OT. Exam Vital Signs (past 8 hours): - 06/24/22 07:00 06/24/22 07:30 06/24/22 08:14 Pulse Rate 68 76 69 Respiratory Rate 21 18 20 Blood Pressure 147/71 H Pulse Oximetry 98 96 Oxygen Delivery Method 06/24/22 08:12 06/24/22 08:13 06/24/22 08:13 Pulse Rate 72 69 Respiratory Rate 20 18 Blood Pressure 147/71 H Pulse Oximetry 96 Oxygen Delivery Method 06/24/22 08:30 06/24/22 08:30 06/24/22 09:00 Pulse Rate 68 74 Respiratory Rate 20 21 Blood Pressure 136/63 Pulse Oximetry 95 94 Oxygen Delivery Method 06/24/22 09:30 06/24/22 10:00 06/24/22 10:17 Pulse Rate 78 75 Respiratory Rate 19 18 Blood Pressure 140/78 Pulse Oximetry 97 95 Oxygen Delivery Method 06/24/22 10:17 06/24/22 10:32 06/24/22 11:00 Pulse Rate 84 97 H 83 Respiratory Rate 18 19 21 Blood Pressure Pulse Oximetry 95 97 95 Oxygen Delivery Method Room Air 06/24/22 11:30 06/24/22 12:50 06/24/22 12:50 Pulse Rate 89 81 Respiratory Rate 20 Blood Pressure 143/87 H Pulse Oximetry 94 95 Oxygen Delivery Method Room Air Room Air Oxygen Delivery Method Room Air Narrative Exam Narrative: GEN: no acute distress HEENT: moist mucous membranes, PERRL NECK: trachea midline, no JVD PULM: clear bilaterally, no wheezes/rhonchi/rales CV: regular rate and rhythm, no murmurs ABD: soft, nontender, nondistended, normal bowel sounds EXT: warm and well perfused with no edema NEURO: awake, alert, oriented, no focal deficits noted, CN 2-12 intact, upper and lower extremities 5/5 strength, sensation intact in face and upper and lower extremities, rapid alternating movements without abnormality Objective Labs Result Diagrams: 06/24/22 08:12 06/24/22 08:12 Labs: Laboratory Results - last 24 hr 06/23/22 06/23/22 06/23/22 18:40 18:40 18:40 WBC 7.2 RBC 5.33 Hgb 17.4 Hct 48.4 MCV 90.8 MCH 32.6 MCHC 35.9 RDW 13.0 Plt Count 184 Neut % (Auto) 67.8 Lymph % (Auto) 21.8 L [place] % (Auto) 8.5 Eos % (Auto) 0.7 L Baso % (Auto) 1.2 Neut # (Auto) 4900 Lymph # (Auto) 1600 [place] # (Auto) 600 Eos # (Auto) 0 Baso # (Auto) 100 PT 11.9 INR 1.0 APTT 32 Sodium 137 Potassium 4.2 Chloride 104 Carbon Dioxide 20 L BUN 12 Creatinine 1.06 Estimated GFR > 60 BUN/Creatinine Ratio 11.3 Glucose 110 H Hemoglobin A1c Calcium 9.4 Total Bilirubin 1.2 AST 45 ALT 63 H Alkaline Phosphatase 82 Total Creatine Kinase 88 CK-MB (CK-2) TNP CK-MB (CK-2) Rel Index TNP Troponin I < 0.012 Total Protein 7.9 Albumin 4.7 Globulin 3.2 Albumin/Globulin Ratio 1.5 Triglycerides Cholesterol LDL Cholesterol, Calc HDL Cholesterol U Opiates 300ng/mL cut Ur Oxycodone Screen Urine Methadone Screen Ur Barbiturates Screen U Tricyclic Antidepress Ur Phencyclidine Scrn Ur Amphetamines Screen U Methamphetamines Scrn Ur MDMA Scrn (Ecstasy) U Benzodiazepines Scrn Urine Cocaine Screen U Marijuana (THC) Screen Ethyl Alcohol < 10 SARS-CoV-2 (PCR) 06/23/22 06/24/22 06/24/22 19:17 00:44 08:12 WBC 7.7 RBC 5.06 Hgb 16.3 Hct 46.0 MCV 90.9 MCH 32.2 MCHC 35.4 RDW 13.2 Plt Count 170 Neut % (Auto) 71.6 Lymph % (Auto) 16.9 L [place] % (Auto) 10.0 Eos % (Auto) 0.9 L Baso % (Auto) 0.6 Neut # (Auto) 5500 Lymph # (Auto) 1300 [place] # (Auto) 800 Eos # (Auto) 100 Baso # (Auto) 0 PT INR APTT Sodium Potassium Chloride Carbon Dioxide BUN Creatinine Estimated GFR BUN/Creatinine Ratio Glucose Hemoglobin A1c Calcium Total Bilirubin AST ALT Alkaline Phosphatase Total Creatine Kinase CK-MB (CK-2) CK-MB (CK-2) Rel Index Troponin I Total Protein Albumin Globulin Albumin/Globulin Ratio Triglycerides Cholesterol LDL Cholesterol, Calc HDL Cholesterol U Opiates 300ng/mL cut Negative Ur Oxycodone Screen Negative Urine Methadone Screen Negative Ur Barbiturates Screen Negative U Tricyclic Antidepress Negative Ur Phencyclidine Scrn Negative Ur Amphetamines Screen Negative U Methamphetamines Scrn Negative Ur MDMA Scrn (Ecstasy) Negative U Benzodiazepines Scrn Negative Urine Cocaine Screen Negative U Marijuana (THC) Screen Negative Ethyl Alcohol SARS-CoV-2 (PCR) Negative 06/24/22 06/24/22 08:12 08:12 WBC RBC Hgb Hct MCV MCH MCHC RDW Plt Count Neut % (Auto) Lymph % (Auto) [place] % (Auto) Eos % (Auto) Baso % (Auto) Neut # (Auto) Lymph # (Auto) [place] # (Auto) Eos # (Auto) Baso # (Auto) PT INR APTT Sodium 139 Potassium 4.1 Chloride 107 Carbon Dioxide 23 BUN 12 Creatinine 1.05 Estimated GFR > 60 BUN/Creatinine Ratio 11.4 Glucose 113 H Hemoglobin A1c 4.9 Calcium 9.0 Total Bilirubin AST ALT Alkaline Phosphatase Total Creatine Kinase CK-MB (CK-2) CK-MB (CK-2) Rel Index Troponin I Total Protein Albumin Globulin Albumin/Globulin Ratio Triglycerides 169 H Cholesterol 288 H LDL Cholesterol, Calc 212 H HDL Cholesterol 42 U Opiates 300ng/mL cut Ur Oxycodone Screen Urine Methadone Screen Ur Barbiturates Screen U Tricyclic Antidepress Ur Phencyclidine Scrn Ur Amphetamines Screen U Methamphetamines Scrn Ur MDMA Scrn (Ecstasy) U Benzodiazepines Scrn Urine Cocaine Screen U Marijuana (THC) Screen Ethyl Alcohol SARS-CoV-2 (PCR) [facility] Social History household members: none Smoking Status: Current some day smoker Discharge Plan Discharge Plan Patient Disposition: Home Provider Discharge Comment: Mr. Beal came in to the hospital with right arm neurologic symptoms. He was found to have a stroke. He was found to have high blood pressure and high cholesterol which increase the risk of stroke. He has a blocked carotid artery. He needs to follow up a PCP. He should setup an outpatient reeling machine setup operator (called Holter monitor) with his PCP to look for abnormal heart rhythms which can lead to stroke. He should see a usability specialist to determine if he needs procedure on his carotid artery. He had some cognitive issues after the stroke. He should be referred to occupational therapy. Discharge orders & Medications Prescriptions: New clopidogrel 75 mg Tablet 75 mg PO DAILY Qty: 30 0RF aspirin 81 mg Tablet,Delayed Release (Dr/Ec) 81 mg PO DAILY Qty: 30 0RF losartan 25 mg Tablet 25 mg PO DAILY Qty: 30 0RF atorvastatin 40 mg tablet 40 mg PO QPM Qty: 30 0RF Follow up/Referrals: [facility] [Provider Group] - 1 Week (recent stroke, carotid disease, need intervention?) Diet/Activity/Treatments Diet: Regular Visit Report/Discharge Packet Instructions: DI for Stroke-Ischemic, DI for High Blood Pressure Stand Alone Forms: Patient Portal/API, Stroke Signs & Symptoms
== END 2022-06-24 13:10 | disposition home or self-care (01) | DRG 65 ==
LOC: ED 19:57 → AC 06-24 07:22
PROVIDERS: Admitting Provider Internal Medicine; Emergency Provider Emergency Medicine; Referring Provider Emergency Medicine; Visit Provider Internal Medicine
DX: I63.232 Cerebral infarction due to unspecified occlusion or stenosis of left carotid arteries (principal); G81.91 Hemiplegia, unspecified affecting right dominant side; R29.702 NIHSS score 2; R29.701 NIHSS score 1; I10 Essential (primary) hypertension; E78.5 Hyperlipidemia, unspecified; F17.200 Nicotine dependence, unspecified, uncomplicated; Z20.822 Contact with and (suspected) exposure to COVID-19
CPT/HCPCS: 36415; 70496; 70498; 70551; 80048; 80053; 80061; 80305; 80320; 82550; 83036; 84484; 85025; 85610; 85730; 87635; 93005; 93010; 93306; 96372; 97161; 97166; 97530; 99285; C9803; G0378; J1650; Q9967

== ENCOUNTER → 2023-04-01 12:04 | Outpatient (CLI) | payer OTHER, SELFPAY ==
--- NOTE | 2023-04-01 | DI.CT.S_ITS ---
PROCEDURE: CT ABDOMEN PELVIS W CON INDICATIONS: right lower quadrant pain TECHNIQUE: After the administration of oral and intravenous contrast, axial sections were acquired from the lung bases to the pubic symphysis. Coronal and sagittal reformats were performed. For radiation dose reduction, the following was used: automated exposure control, adjustment of mA and/or kV according to patient size. COMPARISON:None. FINDINGS: Image quality: Excellent. Lung bases: Unremarkable. Heart: No significant findings. ABDOMEN: Liver: Unremarkable. Gallbladder: Unremarkable. Biliary ducts: Unremarkable. Pancreas: Unremarkable. Spleen: Unremarkable. Adrenal Glands: Unremarkable. Kidneys and Ureters: Unremarkable. Stomach and Bowel: Stomach, small bowel loops, and colon are unremarkable. Normal appendix. Peritoneum: No abnormal intraperitoneal fluid. No free air. Ventral Wall: No hernia. Abdominal Nodes: No retroperitoneal or mesenteric adenopathy by size criteria. Vessels: Aorta and inferior vena cava are normal in size. Minimal atherosclerotic vascular calcifications. PELVIS: Pelvic Organs: Unremarkable. Bladder: Unremarkable. Pelvic Nodes: No enlarged lymph nodes. Miscellaneous: No inguinal hernias are seen. Bones: Degenerative changes of the spine. IMPRESSION: No cause for patient's symptoms is identified. No acute intra-abdominal abnormalities. Dictated by: John Shankar M.D. on 04/01/2023 at 14:32 Approved by: John Shankar M.D. on 04/01/2023 at 14:35
[2023-04-01 12:34] LABS: Estimated Glomerular Filt Rate > 60 mL/min (>60)
== END ==
PROVIDERS: Family Medicine; Referring Provider Family Medicine; Visit Provider Family Medicine
DX: R10.31 Right lower quadrant pain (principal)
CPT/HCPCS: 36415; 74177; 82565; Q9967